=== PATIENT | male | born 1950 | race Caucasian/White ===

== ENCOUNTER 2023-11-06 10:40 | Inpatient (IN) ==
[~2023-11-06 10:40] MED LIST: Metoclopramide 5 MG/ML VIAL (10 mg) IV PRN; NS 0.45% 1000 ml BAG 1,000 ML IV SCH; Naloxone 0.4 mg VIAL 0.4 mg/ml 1 ml VIAL IV PRN; Ondansetron 4 mg VIAL 2 MG/ML 2 ml VIAL IV PRN; fentaNYL 100 mcg/2 ml 50 MCG/ML VIAL IV PRN
[2023-11-06 11:23] LABS: Rapid COVID-19 Molecular Undetected (Undetected)
[2023-11-06] MEDS ORDERED: ceFAZolin 2 GM in NS PREMIX 2 GM/100 ML BAG IVPB ONE (11:48)
[2023-11-06] MEDS ORDERED: Tranexamic Acid 1 GM/100ML BAG 2,000 MG/200 ML BAG IV ONE (11:48)
[2023-11-06] MEDS ORDERED: fentaNYL 100 mcg/2 ml 50 MCG/ML VIAL ONE (12:16)
[2023-11-06] MEDS ORDERED: Rocuronium 50 mg VIAL 10 mg/ml 5 ml VIAL (50 mg) ONE (12:16)
[2023-11-06] MEDS ORDERED: Midazolam 2 mg/2 ml VIAL 1 mg/ml 2 ml VIAL (2 mg) ONE (12:16)
[2023-11-06] MEDS ORDERED: Lidocaine 2% PF 5 ML VIAL ONE (12:16)
[2023-11-06] MEDS ORDERED: Propofol 10 MG/ML 20 ML BTL ONE (12:16)
[2023-11-06] MEDS ORDERED: ROPIVACAINE 5 MG/ML 30 ML BTL (0.5%) ONE (13:46)
[2023-11-06] MEDS ORDERED: Sodium Chloride 0.9% 10 ML ONE (14:21)
[2023-11-06] MEDS ORDERED: Ondansetron 4 mg VIAL 2 MG/ML 2 ml VIAL ONE (14:31)
[2023-11-06] MEDS ORDERED: Dexamethasone IV 4 MG/ML VIAL 1 ml VIAL ONE (14:31)
[2023-11-06] MEDS ORDERED: Ondansetron ODT 4 mg TAB 4 MG TAB PO PRN (14:49)
[2023-11-06] MEDS ORDERED: Ondansetron 4 mg VIAL 2 MG/ML 2 ml VIAL IV PRN (14:49)
[2023-11-06] MEDS ORDERED: Lactulose 30 ml UDC PO PRN (14:49)
[2023-11-06] MEDS ORDERED: Magnesium Hydroxide LIQ 30 ML UDC PO PRN (14:49)
[2023-11-06] MEDS ORDERED: Calcium Carb (TUMS) 500 mg CHEW TAB PO PRN (14:49)
[2023-11-06] MEDS ORDERED: Morphine 2 MG/ML SYRINGE IV PRN (14:49)
[2023-11-06] MEDS: Scopolamine 1 mg/72hr PATCH TRANSDERM ONE (17:21)
[2023-11-06] MEDS: Buffered Lidocaine 1% SYRIN 1 ml INTRADERM ONE (17:21)
[2023-11-06] MEDS: Acetaminophen IV 1 GM/100ML 1,000 MG/100 ML BAG IV ONE (17:21)
[2023-11-06] MEDS: Lactated Ringers 1000 ml BAG 1,000 ML IV SCH ×3 (17:22→21:13)
[2023-11-06] MEDS: Magnesium Hydroxide LIQ 30 ML UDC PO SCH (21:15)
[2023-11-06] MEDS: ceFAZolin 2 GM in NS PREMIX 2 GM/100 ML BAG IVPB SCH (21:45)
[2023-11-07] MEDS: NS 0.9% 500 ml BAG 500 ML IV ONE (02:23)
[2023-11-07 06:41] LABS: Hematocrit 29.7 % (38-53); Hemoglobin 10.2 g/dL (13.2-16.3); Platelet Count 174 10^3/uL (150-450)
[2023-11-07 07:03] LABS: Calcium 8.6 mg/dL (8.6-10.3); Creatinine, Serum 1.12 mg/dL (0.67-1.17); Potassium 4.5 mmol/L (3.5-5.0); eGFR CKD-EPI 68.9 (>60)
[2023-11-07] MEDS: Vitamin THERAPEUTIC TAB PO SCH (09:35)
[2023-11-07 14:23] VITALS: BP 115/52
== END 2023-11-07 16:25 | DRG 301 ==
LOC: AA 10:40 → SSU 14:49
PROVIDERS: ADMIT Orthopaedic Surgery Adult Reconstructive Orthopaedic Surgery; ATTEND Orthopaedic Surgery Adult Reconstructive Orthopaedic Surgery